=== PATIENT | female | born 2000 | race Caucasian/White ===

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

== ENCOUNTER 2020-07-07 16:39 | Emergency (ER) | payer BC ==
[2020-07-07] MEDS ORDERED: diphenhydrAMINE HCL 12.5 MG/5 ML UNIT-DOSE CUPS PO ONE (16:57)
[2020-07-07 16:58] VITALS: BP 137/85; TEMP 98.5; BMI 26.5
[2020-07-07 16:59] VITALS: PULSE 90
== END 2020-07-07 18:35 | disposition home or self-care (01) ==
LOC: FER 16:39
DX: T78.40XA Allergy, unspecified, initial encounter (principal)
CPT/HCPCS: 99283-25